=== PATIENT | female | born 2005 | race Caucasian/White ===

== ENCOUNTER 2025-06-18 15:01 | Outpatient (AMB) | payer OTHER, SELFPAY ==
--- NOTE | 2025-06-18 15:03 | A.OFFVIS_ITS ---
Intake Visit Reasons: 6 month migraine Allergies diphenhydramine (From Benadryl) Allergy (Unknown, Verified 06/18/25 15:08) Unknown hydroxyzine Allergy (Unknown, Verified 06/18/25 15:08) Unknown Medication List - Last Reconciled 06/18/25 by Kait Potter CNP duloxetine 120 mg PO DAILY lamotrigine 100 mg PO DAILY lamotrigine 25 mg PO DAILY norgestimate-ethinyl estradiol 0.18/0.215/0.25 mg-0.035mg (28) (Tri-Estarylla) 1 tab PO DAILY nortriptyline 50 mg PO BEDTIME propranolol 60 mg PO BID sumatriptan succinate 100 mg PO BID PRN HPI Comments Details: She was doing okay. Headaches have been okay. Headaches down to 1-2x/week, less severe and able to function. Gets migraine headache about 1x/month, sumatriptan as needed helps. Triggers include heat and lack of sleep. Sleep was generally okay. Maintaining regular sleep schedule and using barrel inspector. She was starting at [facility] [facility] [employer] and was moving in at the end of the month. Amitriptyline did not help and was too tired with 50mg dose. Was having daily headaches, pain was constant and could be anywhere. Severity varied from mild to severe, had trouble functioning when pain was 4-5/10 and would have to lay down. Migraines about 1-2x/month. She was having intractable headaches. She suffers from anxiety, depression, insomnia, and TMJ syndrome. On lamotrigine, duloxetine and clonidine for mental health issues. She first started having headaches around age 10, however, they increased in the last 2 years. Headaches have been particularly worse since she went to college in 07/2023. Since then, she's been getting between 3-7 days a week of headaches. She describes 2 types of headaches, the normal headache which is either at the base of her skull or in her jaw on the top of her head almost every day and a yary-headache that occurs about twice a week, especially if she is stressed associated with nausea, dizziness, photophobia and sonophobia lasting 2-3 hours with which she cannot function. The headaches can be triggered by reading and concentrating, physical activity, heat, hunger, dehydration, and stress. She also has grinding of the teeth and has been in physical therapy. Her mother, aunt and grandmother suffer from migraines. [facility] Medical History (Updated 06/18/25 @ 15:07 by Kait Potter CNP) Insomnia Tension headache Migraine Review of Systems Const Denies chills, Denies daytime sleepiness, Denies difficulty sleeping, Denies fatigue, Denies fever(s), Denies frequent falls, Reports headache(s), Denies increased appetite, Denies poor appetite, Denies snoring, Denies weakness, Denies weight gain and Denies weight loss Eyes Denies loss of vision ENT Denies vertigo, Denies dizziness, Reports headache(s) and Denies neck pain Card Denies chest pain at rest, Denies chest pain with activity, Denies syncope, Denies leg edema, Denies palpitations, Denies dyspnea and Denies dyspnea on exertion Resp Denies cough, Denies dyspnea, Denies dyspnea on exertion and Denies snoring GI Denies abdominal pain, Denies constipation, Denies heartburn, Denies diarrhea and Denies nausea Denies urinary frequency, Denies urinary incontinence and Denies urinary urgency Musc Denies abnormal gait, Denies back pain, Denies myalgias, Denies arthralgias, Denies neck pain, Denies numbness and Denies tingling Neuro Denies abnormal gait, Denies vertigo, Denies dizziness, Denies syncope, Denies frequent falls, Reports headache(s), Denies lack of coordination, Denies loss of vision, Denies memory loss, Denies numbness, Denies Other visual disturbances, Denies restless legs, Denies seizure-like activity, Denies tingling, Denies paresthesias, Denies tremor(s) and Denies weakness Psych Reports anxiety, Denies depression, Denies auditory hallucinations, Denies memory loss and Denies visual hallucinations Endo Denies fatigue and Denies palpitations Physical Exam Const Other: General Appearance:? normal, in no acute distress. Heart:? S1, S2 normal, no murmurs. Lungs:? clear anteriorly and posteriorly. Musculoskeletal:? normal. Extremities:? no edema. Psych:? alert, oriented, cognitive function intact, cooperative with exam. Neuro Other: Abnormal Neurological Findings:?none.? Mental Status: alert and oriented X 3. Normal attention, orientation, memory, and affect. Cranial Nerves: Pupils are equal, round, and reactive to light. External ocular muscles are intact. Visual oreilly are full, no ptosis. Face is symmetrical, no facial weakness or droop. Facial sensations are normal. Tongue protrudes in midline. Palate elevates symmetrically. Shoulder shrugging is normal Motor Examination: Normal muscle tone, bulk and strength. No atrophy or fasciculations. No drift of the extended upper extremities. DTR 2+. Plantars are flexor. Sensory Exam: Normal light touch, temperature, pinprick, vibration, and joint- position sensations. Rhomberg sign is absent. Coordination: No ataxia. No titubation. [id number], bssc-ytcf-mcdy test, and rapid alternating movements were normal. Gait Exam: Within normal limits. Cerebellar Signs: [id number] is okay. Extrapyramidal System: No tremor, rigidity with normal facial expressions. No bradykinesia. No bradyphrenia. Normal arm swing and posture. No propulsion or retropulsion. Speech: Normal. No dysphasia or dysarthria. Assessment & Plan Assessment & Plan (1) Migraine: Code(s): G43.909 - Migraine, unspecified, not intractable, without status migrainosus Category: Medical Qualifiers: Migraine type: migraine (< 15 days per month) without aura Status migrainosus presence: without status migrainosus Intractability: not intractable Qualified Code(s): G43.009 - Migraine without aura, not intractable, without status migrainosus Plan: Continue propranolol 60mg 1 tablet twice a day. Continue sumatriptan 100mg 1 tablet as needed for migraine. (2) Tension headache: Code(s): G44.209 - Tension-type headache, unspecified, not intractable Category: Medical Plan: Continue nortriptyline 50mg 1 capsule at bedtime. (3) Insomnia: Code(s): G47.00 - Insomnia, unspecified Category: Medical Qualifiers: Insomnia type: unspecified Qualified Code(s): G47.00 - Insomnia, unspecified Plan: Nortriptyline may also help with sleep. Plan Meds tried: amitriptyline, nortriptyline, propranolol Medications: New nortriptyline 50 mg PO BEDTIME 90 caps 1RF 90 days sumatriptan succinate take 1 tab at onset of headache; if no relief, may repeat 1 tab after at least 2 hrs; max = 2 tabs/24 hrs PO 10 tabs 5RF 30 days Discontinued nortriptyline Discontinued Reason: Order 50 mg PO BEDTIME sumatriptan succinate Discontinued Reason: Order 100 mg PO BID PRN migraine Coding Level of Care Code Est Pt Level 4 (60582) Diagnoses Migraine without aura and without status migrainosus, not intractable G43.009 Migraine type: migraine (< 15 days per month) without aura Status migrainosus presence: without status migrainosus Intractability: not intractable Tension headache G44.209 Insomnia, unspecified type G47.00 Insomnia type: unspecified
--- OUTSIDE RECORDS SUMMARY | 2025-06-18 15:32 | XMS_ITS | Encounter Summary ---
Author Organization [facility] Address [address] [place] [address] Phone Care Team Providers Care Hat Ironer Name Role Phone Nate Rosado MD Primary Care Provider [phone] Olga Andrade MD Primary Care Provider [phone] Danita Correia MD Primary Care Provider [phone] Reason for Referral * Physical Therapy (Routine) - Closed Specialty Diagnoses / Procedures Referred By Raymond mai Referred To Contact Physical Therapy Diagnoses Encounter for rehabilitation Nate Rosado MD Phone: tel: fax: [email or web address] [facility] [address] [place] [address] Phone: tel: Referral ID Status Reason Start Date Expiration Date Visits Re quested Visits Authorized [id number] Closed 12/26/2017 01/10/2018 12 12 Encounter Details Date Type Department Care Team (Latest Contact Info) Description 12/26/2017 Transcribe Orders [facility] [address] [place] [address] Nate Rosado MD [address] [facility], [address] [place] [address] [email or web address] Encounter for rehabilitation (Primary Dx) Social History Tobacco Use Types Packs/Day Years Used Date Smoking Tobacco: Never Assessed Comments Unknown Sex and Gender Information Value Date Recorded Sex Assigned at Female 06/22/2018 9:55 AM EDT Legal Sex Female 8:44 PM EDT Gender Identity Female 06/22/2018 9:55 AM EDT Sexual Orientation Choose not to disclose 2017 9:55 AM EDT documented as of this encounter Plan of Treatment Scheduled Referrals Name Type Priority Associated Diagnoses Orde r Schedule Ambulatory referral to [facility] Physical Therapy Outpatient Referral Routine Encounter for rehabilitation Ordered: 12/26/2017 documented as of this encounter Visit Diagnoses Diagnosis Encounter for rehabilitation- Primary documented in this encounter Care Teams Hat Ironer Relationship Specialty Start Date End Date Nate Rosado MD [address] [place] [id number] PCP - General Pediatrics 12/23/17 01/12/18 Olga Andrade MD [address] [place] [id number] [email or web address] PCP - General Pediatrics 01/13/18 05/08/23 Danita Correia MD [address] [place] [id number] PCP - General Pediatrics 05/09/23 documented as of this encounter Additional Source Comments The information contained in this document represents components of the legal health record. It is not the complete legal health record.[facility]
--- OUTSIDE RECORDS SUMMARY | 2025-06-18 15:32 | XMS_ITS | Encounter Summary ---
Author Organization [facility] Address [address] [place] [address] Phone Care Team Providers Care Compression Molding Machine Tender Name Role Phone Danita Correia MD Primary Care Provider [phone] Encounter Details Date Type Department Care Team (Late st Contact Info) Description 06/21/2017 Conversion Encounter [facility] - [address], [address] [place] [address] Olga Andrade MD [address] [place] [address] Social History Tobacco Use Types Packs/Day Years Used Date Smoking Tobacco: Never Assessed Comments Unknown Sex and Gender Information Value Date Recorded Sex Assigned at Female 10/19/2024 12:06 PM EST Legal Sex Female 5:21 PM EST Gender Identity Female 01/24/2022 11:15 AM EDT Sexual Orientation Choose not to answer 10/30/20 24 1:12 PM EST documented as of this encounter Plan of Treatment Not on file documented as of this encounter Visit Diagnoses Not on filedocumented in this encounter Care Teams Compression Molding Machine Tender Relationship Specialty Start Date End Date Danita Correia MD [address] [place] [address] PCP - General Pediatrics 12/12/22 documented as of this encounter
== END 2025-06-18 15:16 | disposition home or self-care (01) ==
LOC: HO.HSM 15:01
PROVIDERS: PCP Student in an Organized Health Care Education/Training Program; Visit Provider Registered Nurse
DX: G43.009 Migraine without aura, not intractable, without status migrainosus (principal); G44.209 Tension-type headache, unspecified, not intractable; G47.00 Insomnia, unspecified
CPT/HCPCS: 99214

== ENCOUNTER → 2025-06-18 15:01 | Outpatient (BNVA) | payer OTHER, SELFPAY | PROVIDERS: PCP Student in an Organized Health Care Education/Training Program; Visit Provider Registered Nurse | DX: G43.009 Migraine without aura, not intractable, without status migrainosus (principal); G44.209 Tension-type headache, unspecified, not intractable; G47.00 Insomnia, unspecified; Z79.899 Other long term (current) drug therapy | CPT/HCPCS: 99212 ==